=== PATIENT | female | born 1990 | race Caucasian/White ===

== ENCOUNTER → 2017-07-07 | Outpatient (CLI) | payer OTHER ==
--- NOTE | 2017-07-07 08:34 | RAD ---
Indication: Cough, flulike symptoms. Technique: Two-view chest radiograph was obtained. No comparison is available. Findings: There is left upper lobe airspace disease and infiltrate throughout the left mid and lower lung dhillon. There is no pleural effusion. The heart is not enlarged and there is no obvious heart failure. Impression: Bilateral infiltrates, likely infectious.
== END | disposition home or self-care (01) ==
LOC: PMG 07:59
PROVIDERS: ATTEND Physician Assistant Medical
DX: R68.89 Other general symptoms and signs (principal); R91.8 Other nonspecific abnormal finding of lung field
CPT/HCPCS: 71046

== ENCOUNTER → 2019-05-22 | Outpatient (CLI) | payer OTHER ==
--- NOTE | 2019-05-22 16:31 | RAD ---
3 views left foot without comparison for left foot pain. FINDINGS: There is no fracture, dislocation, or acute osseous abnormality identified. Joints and soft tissues are grossly unremarkable. No radiopaque foreign bodies are seen. No joint effusion is evident. IMPRESSION: 1. No acute osseous abnormality of the left foot. Electronically signed by: Leonidas Kerr MD (05/22/2019 4:28 PM) [id number]
== END | disposition home or self-care (01) ==
LOC: PMG 11:12
PROVIDERS: ATTEND Physician Assistant Medical
DX: M79.672 Pain in left foot (principal)
CPT/HCPCS: 73630

== ENCOUNTER → 2019-12-21 | Outpatient (CLI) | payer OTHER ==
[2019-12-21 09:58] LABS: ALBUMIN 3.8 g/dL (3.4-5.0); ALBUMIN/GLOBULIN RATIO 0.9 (1.0-1.7); CALCIUM 9.1 mg/dL (8.5-10.1); CREATININE 0.7 mg/dL (0.6-1.0); GFR 98.9; POTASSIUM 4.2 mmol/L (3.5-5.1); TOTAL BILIRUBIN 0.6 mg/dL (0.2-1.0); TOTAL PROTEIN 8.1 g/dL (6.4-8.2)
== END ==
LOC: LAB 09:03
PROVIDERS: ATTEND Internal Medicine Pulmonary Disease
DX: E84.0 Cystic fibrosis with pulmonary manifestations (principal); Z79.899 Other long term (current) drug therapy
CPT/HCPCS: 36415; 80053

== ENCOUNTER → 2020-01-11 | Outpatient (CLI) | payer OTHER ==
[2020-01-11 11:12] LABS: ALBUMIN 3.5 g/dL (3.4-5.0); ALBUMIN/GLOBULIN RATIO 0.9 (1.0-1.7); CALCIUM 9.2 mg/dL (8.5-10.1); CREATININE 0.8 mg/dL (0.6-1.0); GFR 84.8; POTASSIUM 4.3 mmol/L (3.5-5.1); TOTAL BILIRUBIN 0.5 mg/dL (0.2-1.0); TOTAL PROTEIN 7.3 g/dL (6.4-8.2)
== END ==
LOC: LAB 09:11
PROVIDERS: ATTEND Internal Medicine Pulmonary Disease
DX: E84.0 Cystic fibrosis with pulmonary manifestations (principal); Z79.899 Other long term (current) drug therapy
CPT/HCPCS: 36415; 80053

== ENCOUNTER 2020-05-20 00:47 | Emergency (ER) | payer SELFPAY ==
[~2020-05-20] VITALS: Ht 149.9 cm; Wt 55.4 kg
[2020-05-20 01:46] LABS: BASO % 0 % (0-3); EOS # 0.1 x10^3/uL (0.0-0.7); EOS % 1 % (0-3); HEMATOCRIT 36.2 % (36.0-47.0); HEMOGLOBIN 12.1 g/dL (12.0-15.5); LYMPH # 1.3 x10^3/uL (1.0-4.8); LYMPH % 14 % (24-48); MEAN CORPUSCULAR HEMOGLOBIN 32 pg (25-35); MEAN CORPUSCULAR HGB CONC 34 g/dL (31-37); MEAN CORPUSCULAR VOLUME 96 fL (79-100); MONO # 0.4 x10^3/uL (0.0-1.1); MONO % 5 % (0-9); NEUT # 7.7 x10^3uL (1.8-7.7); NEUT % 80 % (31-73); PLATELET COUNT 303 x10^3/uL (140-400); RED BLOOD COUNT 3.77 x10^6/uL (3.50-5.40); RED CELL DISTRIBUTION WIDTH 11.7 % (11.5-14.5); WHITE BLOOD COUNT 9.5 x10^3/uL (4.0-11.0)
[2020-05-20 01:55] LABS: CALCIUM 9.3 mg/dL (8.5-10.1); CREATININE 0.7 mg/dL (0.6-1.0); GFR 98.9; POTASSIUM 3.8 mmol/L (3.5-5.1)
[2020-05-20] MEDS ORDERED: IOHEXOL 300 MG/ML 75 ML VIAL. IV ONE (02:00)
[2020-05-20] MEDS ORDERED: CONTRAST GIVEN. MC PRN (02:00)
[2020-05-20 02:01] LABS: ALBUMIN 2.7 g/dL (3.4-5.0); ALBUMIN/GLOBULIN RATIO 0.5 (1.0-1.7); TOTAL BILIRUBIN 0.4 mg/dL (0.2-1.0); TOTAL PROTEIN 8.1 g/dL (6.4-8.2)
[2020-05-20 02:15] LABS: BACTERIA,URINE 0 /HPF (0-FEW); BILIRUBIN,URINE NEG (NEG); CLARITY,URINE CLEAR; COLOR,URINE YELLOW; GLUCOSE,URINE 250 mg/dL (NEG); NITRITE,URINE NEG (NEG); RBC,URINE 0 /HPF (0-2); SQUAMOUS EPITHELIAL CELL,UR FEW /LPF; WBC,URINE OCC /HPF (0-4)
--- NOTE | 2020-05-20 02:17 | PHYS DOC ---
Past History Past Surgical History: No Surgical History Alcohol Use: None Adult General Chief Complaint Chief Complaint: ABDOMINAL PAIN HPI HPI Patient is a 29-year-old female who presents for 1 week of generalized abdominal pain. Nothing known makes better, p.o. intake makes worse. Patient describes generalized epigastric pain with minimal radiation, timing of symptoms is waxed and waned since onset. Associated symptoms include nausea and abdominal cramping. Patient denies any fever, COVID-19 contact, chest pain, shortness of breath, vomit or diarrhea, no urinary symptoms, no changes in bladder or bowel function, no history of abdominal surgeries in the past. Review of Systems Review of Systems Fourteen body systems of review of systems have been reviewed. See HPI for pertinent positives and negative responses, other larson all other systems are negative, non-pertinent or non-contributory Current Medications Current Medications Current Medications Medications (Trade) Dose Ordered Sig/Sarah Beth Start Time Stop Time Status Last Admin Dose Admin Info (Do NOT chart on this entry -- for MONITORING) 1 each PRN DAILY PRN 05/20/20 02:00 05/22/20 01:59 Iohexol (Omnipaque 300 Mg/ml) 75 ml 1X ONCE 05/20/20 02:00 05/20/20 02:01 DC Allergies Allergies Allergies Coded Allergies Type Severity Reaction Last Updated Verified meropenem Allergy Unknown 05/20/20 Yes Physical Exam Physical Exam Constitutional: Well developed, well nourished, no acute distress, non-toxic appearance. HENT: Normocephalic, atraumatic, bilateral external ears normal, oropharynx moist, no oral exudates, nose normal. Eyes: PERRLA, EOMI, conjunctiva normal, no discharge. Neck: Normal range of motion, no tenderness, supple, no stridor. Cardiovascular: Heart rate regular, sinus rhythm, no murmurs rubs or gallops Lungs & Thorax: Bilateral breath sounds clear to auscultation Abdomen: Bowel sounds normal, soft, epigastric tenderness to palpation, no gua rding, no rebound, no masses, no pulsatile masses. Nonsurgical abdomen, no peritoneal signs Skin: Warm, dry, no erythema, no rash. Back: No tenderness, no CVA tenderness. Extremities: No tenderness, no cyanosis, no clubbing, ROM intact, no edema. Neurologic: Alert and oriented X 3, grossly normal motor & sensory function, no focal deficits noted. Psychologic: Affect normal, judgement normal, mood normal. Current Patient Data Vital Signs Vital Signs Date Time Temp Pulse Resp B/P (MAP) Pulse Ox O2 Delivery O2 Flow Rate FiO2 05/20/20 00:56 98.4 102 18 124/68 (86) 99 Room Air Lab Results Laboratory Tests Test 05/20/20 01:05 05/20/20 01:10 05/20/20 01:18 White Blood Count 9.5 x10^3/uL (4.0-11.0) Red Blood Count 3.77 x10^6/uL (3.50-5.40) Hemoglobin 12.1 g/dL (12.0-15.5) Hematocrit 36.2 % (36.0-47.0) Mean Corpuscular Volume 96 fL (79-100) Mean Corpuscular Hemoglobin 32 pg (25-35) Mean Corpuscular Hemoglobin Concent 34 g/dL (31-37) Red Cell Distribution Width 11.7 % (11.5-14.5) Platelet Count 303 x10^3/uL (140-400) Neutrophils (%) (Auto) 80 % (31-73) H Lymphocytes (%) (Auto) 14 % (24-48) L Monocytes (%) (Auto) 5 % (0-9) Eosinophils (%) (Auto) 1 % (0-3) Basophils (%) (Auto) 0 % (0-3) Neutrophils # (Auto) 7.7 x10^3uL (1.8-7.7) Lymphocytes # (Auto) 1.3 x10^3/uL (1.0-4.8) Monocytes # (Auto) 0.4 x10^3/uL (0.0-1.1) Eosinophils # (Auto) 0.1 x10^3/uL (0.0-0.7) Basophils # (Auto) 0.0 x10^3/uL (0.0-0.2) Sodium Level 135 mmol/L (136-145) L Potassium Level 3.8 mmol/L (3.5-5.1) Chloride Level 99 mmol/L (98-107) Carbon Dioxide Level 26 mmol/L (21-32) Anion Gap 10 (6-14) Blood Urea Nitrogen 12 mg/dL (7-20) Creatinine 0.7 mg/dL (0.6-1.0) Estimated GFR (Cockcroft-Gault) 98.9 BUN/Creatinine Ratio 17 (6-20) Glucose Level 178 mg/dL (70-99) H Calcium Level 9.3 mg/dL (8.5-10.1) Total Bilirubin 0.4 mg/dL (0.2-1.0) Aspartate Amino Transferase (AST) 19 U/L (15-37) Alanine Aminotransferase (ALT) 26 U/L (14-59) Alkaline Phosphatase 118 U/L (46-116) H Total Protein 8.1 g/dL (6.4-8.2) Albumin 2.7 g/dL (3.4-5.0) L Albumin/Globulin Ratio 0.5 (1.0-1.7) L Urine Collection Type Unknown Urine Color Yellow Urine Clarity Clear Urine pH 6.0 Urine Specific [place] 1.025 Urine Protein Neg (NEG-TRACE) Urine Glucose (UA) 250 mg/dL (NEG) Urine Ketones (Stick) Neg mg/dL (NEG) Urine Blood Neg (NEG) Urine Nitrite Neg (NEG) Urine Bilirubin Neg (NEG) Urine Urobilinogen Dipstick 1.0 mg/dL (0.2 mg/dL) Urine Leukocyte Esterase Neg (NEG) Urine RBC 0 /HPF (0-2) Urine WBC Occ /HPF (0-4) Urine Squamous Epithelial Cells Few /LPF Urine Bacteria 0 /HPF (0-FEW) POC Urine HCG, Qualitative hcg negative (Negative) EKG EKG [] Radiology/Procedures Radiology/Procedures EXAMINATION: CT ABD PELV W/ IV CONTRST ONLY (CT ABDOMEN/PELVIS WITH IV CONTRAST) CLINICAL HISTORY: Right upper quadrant abdominal pain. History of cystic fibrosis. TECHNIQUE: CT of the abdomen and pelvis was performed using standard technique, scanning from just above the dome of the diaphragm to the symphysis pubis following administration of intravenous contrast. CT Dose Reduction Employed: One or more of the following individualized dose reduction techniques were utilized for this examination: 1. Automated exposure control 2. Adjustment of the mA and/or kV according to patient size 3. Use of iterative reconstruction technique. COMPARISON: None FINDINGS: Lower thorax: Bronchiectasis partially visualized in the right middle lobe and within the left lung base. Liver: No mass. Biliary: No bile duct dilation. Gallbladder unremarkable. Spleen: No mass. No splenomegaly. Pancreas: Unremarkable on limited evaluation. Adrenals: No mass. Kidneys: No mass, calculus or hydronephrosis. GI tract: Mildly fluid distended small bowel with suggestion of mild wall thickening, suspicious for mild enteritis. Appendix not definitively visualized. Lymph nodes: No abdominal or pelvic lymphadenopathy. Mesentery/Peritoneum: Mild free fluid in the dependent abdomen. Retroperitoneum: No mass. Vasculature: The celiac axis and SMA are patent. The portal vein and branches, splenic vein, SMV, and hepatic veins are patent. No abdominal aortic or iliac artery aneurysm. Pelvis: Mildly filled urinary bladder. Prominent endometrium. Dominant left ovarian follicle. Bones/Soft Tissues: No evidence of acute osseous abnormality. IMPRESSION: Findings suggestive of mild enteritis. Mild free fluid in the dependent abdomen, possibly reactive. Appendix not definitively visualized. Electronically signed by: Perico Elizabeth DO (05/20/2020 4:11 AM) [facility] HEART Score for Chest Pain: HEART Score for Chest Pain Response (Comments) Value History Slighlty/Non-Suspicious 0 Age < 45 0 Risk Factors No Risk Factors 0 Total 0 Risk Factors: Risk Factors: DM, Current or recent (<one month) smoker, HTN, HLP, family history of CAD, obesity. Risk Scores: Risk Factors: DM, Current or recent (<one month) smoker, HTN, HLP, family history of CAD, obesity. Course & Med Decision Making Course & Med Decision Making Pertinent Labs and Imaging studies reviewed. (See chart for details) No emergent and/or surgical pathology present based on comprehensive ER work-up. Nonetheless, I did disclose this might be an acute presentation of more concerning pathology and as such, I advised extremely close outpatient follow-up for repeat examination. I discussed most likely diagnosis of enteritis which is likely viral and self-limiting in etiology. Advised patient on supportive care measures for this diagnosis. Strict return precautions were discussed with good understanding by patient, all questions and concerns addressed prior to ER departure stable condition Dragon Disclaimer Dragon Disclaimer This electronic medical record was generated, in whole or in part, using a voice recognition dictation system. Departure Departure: Impression: Primary Impression: Abdominal pain Additional Impression: Enteritis Disposition: 01 DC HOME SELF CARE/HOMELESS Condition: STABLE Referrals: MELISSA VERA (PCP) Patient Instructions: Abdominal Pain (Nonspecific), Viral Gastroenteritis Additional Instructions: You have been evaluated in the Emergency Department today for abdominal pain. Your evaluation was not suggestive of any emergent condition requiring medical intervention at this time. However, some abdominal problems make take more time to appear. Therefore, it is important for you to watch for any new symptoms or worsening of your current condition. Please follow up with your primary care physician as needed. If you do not have a primary doctor, you can call your insurance company to find one. If you do not have insurance, you can go to the finance/registration department for more assistance. Return to the Emergency Department if you experience worsening pain, persistent fevers greater than 100.4, recurrent vomiting, blood in vomit, blood in stool, dark tarry stool, chest pain, difficulty breathing, or any other concerning symptoms. Problem Qualifiers MIK WRIGHT DO May 20, 2020 02:17
--- NOTE | 2020-05-20 04:14 | RAD ---
EXAMINATION: CT ABD PELV W/ IV CONTRST ONLY (CT ABDOMEN/PELVIS WITH IV CONTRAST) CLINICAL HISTORY: Right upper quadrant abdominal pain. History of cystic fibrosis. TECHNIQUE: CT of the abdomen and pelvis was performed using standard technique, scanning from just above the dome of the diaphragm to the symphysis pubis following administration of intravenous contrast. CT Dose Reduction Employed: One or more of the following individualized dose reduction techniques were utilized for this examination: 1. Automated exposure control 2. Adjustment of the mA and/or kV according to patient size 3. Use of iterative reconstruction technique. COMPARISON: None FINDINGS: Lower thorax: Bronchiectasis partially visualized in the right middle lobe and within the left lung base. Liver: No mass. Biliary: No bile duct dilation. Gallbladder unremarkable. Spleen: No mass. No splenomegaly. Pancreas: Unremarkable on limited evaluation. Adrenals: No mass. Kidneys: No mass, calculus or hydronephrosis. GI tract: Mildly fluid distended small bowel with suggestion of mild wall thickening, suspicious for mild enteritis. Appendix not definitively visualized. Lymph nodes: No abdominal or pelvic lymphadenopathy. Mesentery/Peritoneum: Mild free fluid in the dependent abdomen. Retroperitoneum: No mass. Vasculature: The celiac axis and SMA are patent. The portal vein and branches, splenic vein, SMV, and hepatic veins are patent. No abdominal aortic or iliac artery aneurysm. Pelvis: Mildly filled urinary bladder. Prominent endometrium. Dominant left ovarian follicle. Bones/Soft Tissues: No evidence of acute osseous abnormality. IMPRESSION: Findings suggestive of mild enteritis. Mild free fluid in the dependent abdomen, possibly reactive. Appendix not definitively visualized. Electronically signed by: Perico Elizabeth DO (05/20/2020 4:11 AM) [facility]
[2020-05-20 04:50] VITALS: BP 118/78
== END 2020-05-20 04:50 | disposition home or self-care (01) ==
LOC: ER 00:47
DX: K52.9 Noninfective gastroenteritis and colitis, unspecified (principal); Z88.8 Allergy status to other drugs, medicaments and biological substances
CPT/HCPCS: 36415; 74177; 80053; 81001; 81025; 85025; 99285; Q9967